=== PATIENT | male | born 1990 | race Caucasian/White ===

== ENCOUNTER 2018-04-19 09:42 | Emergency (ER) | payer OTHER, BC ==
[2018-04-19] MEDS: BACLOFEN 10 MG TAB PO (10:33)
[2018-04-19] MEDS: PERCOCET 5MG/325MG TAB PO (10:33)
== END 2018-04-19 11:35 | disposition home or self-care (01) ==
LOC: M ED 09:42
DX: S39.002A Unspecified injury of muscle, fascia and tendon of lower back, initial encounter (principal); X58.XXXA Exposure to other specified factors, initial encounter; Y92.89 Other specified places as the place of occurrence of the external cause; F17.210 Nicotine dependence, cigarettes, uncomplicated
CPT/HCPCS: 99283